=== PATIENT | female | born 1955 | race Caucasian/White ===

== ENCOUNTER → 2024-09-30 | Outpatient (CLI) | payer MEDICARE, SELFPAY | END | disposition home or self-care (01) | LOC: SLDO 15:20 | PROVIDERS: PCP Nurse Practitioner Family; Referring Provider Nurse Practitioner Family; Visit Provider Nurse Practitioner Family | DX: N30.00 Acute cystitis without hematuria (principal) | CPT/HCPCS: 87077; 87086; 87186 ==

== ENCOUNTER → 2024-10-30 | Outpatient (CLI) | payer MEDICARE, SELFPAY ==
[2024-10-30 12:26] LABS: Alanine Aminotransferase 20 U/L (10-49); Albumin, Serum 4.5 gm/dL (3.4-4.8); Alkaline Phosphatase 77 U/L (46-116); Anion Gap 8 (7-16); Aspartate Amino Transferase 25 U/L (0-34); BUN/Creatinine Ratio 22 Ratio (12-20); Bilirubin,Total 0.7 mg/dL (0.3-1.2); Blood Urea Nitrogen 13 mg/dL (9-23); Calcium 9.6 mg/dL (8.3-10.6); Calcium (Corrected) 9.6 mg/dL (8.5-10.1); Cardiac Risk Estimate 2.6 RATIO (3.7-5.6); Chloride 103 mMol/L (98-107); Cholesterol 160 mg/dL (132-200); Creatinine (Component) 0.6 mg/dL (0.6-1.3); Globulin 2.3 gm/dL (2.3-3.5); Glucose 94 mg/dL (74-106); HDL Cholesterol 61 mg/dL (40-60); LDL Cholesterol,Calculated 83 mg/dL (0-130); Osmolality,Calculated 277 (275-295); Potassium 4.1 mMol/L (3.4-5.1); Sodium 139 mMol/L (136-145); Total Protein 6.8 gm/dL (5.7-8.2); Triglycerides 81 mg/dL (30-150); eGFR > 60 See Note
== END | disposition home or self-care (01) ==
LOC: COPL 09:50
PROVIDERS: PCP Family Medicine; Referring Provider Physician Assistant; Visit Provider Physician Assistant
DX: E78.5 Hyperlipidemia, unspecified (principal)
CPT/HCPCS: 36415; 80053; 80061

== ENCOUNTER 2025-01-01 05:16 | Emergency (ER) | payer MEDICARE, SELFPAY ==
[2025-01-01 05:16] VITALS: BMI 26.6
[2025-01-01 05:20] VITALS: BP 134/74; PULSE 79; RESP 16; TEMP 37.1; O2SAT 97
--- NOTE | 2025-01-01 05:32 | EDRME_ITS ---
Rapid Medical Screening Exam [facility] Arrival date/time: 01/01/25 05:16 69F with no significant PMH presents to ED with 1 week of constipation and vague ab discomfort. Patient denies N/V. Chief Complaint: Abdominal Pain Vital signs: Vital Signs Temperature 98.7 F 01/01/25 05:20 Pulse Rate 79 01/01/25 05:20 Respiratory Rate 16 01/01/25 05:20 Blood Pressure 134/74 H 01/01/25 05:20 Pulse Oximetry (%) 97 01/01/25 05:20 Oxygen Delivery Method Room Air 01/01/25 05:20
[2025-01-01 06:13] LABS: Lactate (Lactic Acid) 0.7 mMol/L (0.4-2.0)
[2025-01-01 06:15] VITALS: BP 128/63; PULSE 62; RESP 18; TEMP 36.6; O2SAT 97
[2025-01-01 06:24] LABS: Basophils # (Auto) 0.1 Thou/mm3 (0.0-0.2); Basophils % (Auto) 0 % (0-2.5); Eosinophils # (Auto) 0.1 Thou/mm3 (0.0-0.5); Eosinophils % (Auto) 1 % (0-10); Hematocrit 40.1 % (36.0-46.0); Hemoglobin 13.1 g/dL (12.0-16.0); Immature Granulocytes % (Auto) 0 % (0-0); Immature Granulocytes Auto 0.03 Thou/mm3 (0.00-0.00); Lymphocytes # (Auto) 1.5 Thou/mm3 (1.0-4.8); Lymphocytes % (Auto) 13 % (10-50); Mean Corpuscular HGB Conc 32.7 g/dl (31.0-37.0); Mean Corpuscular Volume 89 fL (80-100); Monocytes # (Auto) 0.5 Thou/mm3 (0.0-0.8); Monocytes % (Auto) 4 % (0-12); Neutrophils # (Auto) 9.8 Thou/mm3 (1.8-7.7); Neutrophils % (Auto) 82 % (37-80); Nucleated Red Blood Cell % 0 /100 WBC (0); Platelet Count 339 Thou/mm3 (140-440); RDW Standard Deviation 48.8 fL (36.4-46.3); Red Blood Count 4.52 Miln/mm3 (4.00-5.20); White Blood Count 11.9 Thou/mm3 (3.6-11.0)
[2025-01-01 06:39] LABS: Alanine Aminotransferase 22 U/L (10-49); Albumin, Serum 4.6 gm/dL (3.4-4.8); Albumin/Globulin Ratio 1.5 (1.2-2.2); Alkaline Phosphatase 96 U/L (46-116); Anion Gap 5 (7-16); Aspartate Amino Transferase 32 U/L (0-34); BUN/Creatinine Ratio 16 Ratio (12-20); Bilirubin,Total 0.5 mg/dL (0.3-1.2); Blood Urea Nitrogen 11 mg/dL (9-23); Calcium 9.8 mg/dL (8.3-10.6); Calcium (Corrected) 9.8 mg/dL (8.5-10.1); Carbon Dioxide 29.9 mMol/L (20.0-31.0); Chloride 107 mMol/L (98-107); Creatinine (Component) 0.7 mg/dL (0.6-1.3); Estimated Creatinine Clearance 76.9 mL/min (>60); Globulin 3.1 gm/dL (2.3-3.5); Glucose 104 mg/dL (74-106); Osmolality,Calculated 282 (275-295); Potassium 4.1 mMol/L (3.4-5.1); Sodium 142 mMol/L (136-145); Total Protein 7.7 gm/dL (5.7-8.2); eGFR > 60 See Note
--- NOTE | 2025-01-01 07:09 | XR_ITS ---
Examination: Abdominal series 3 views including upright PA chest TECHNIQUE: Upright PA chest, AP upright AP supine abdomen 3 views Exam date and time: January 01, 2025 at 0728 hours INDICATIONS: Abdominal pain and constipation beginning 6 days ago. FINDINGS: Normal heart size Lungs are clear. Large amounts of stool throughout the entire colon. No obstruction. No free air Severe osteopenia IMPRESSION: Large amounts of stool throughout the entire colon
--- NOTE | 2025-01-01 07:12 | PD.EDABDPN ---
ED Abdominal Pain RME/HPI General Chief Complaint: Abdominal Pain Stated complaint: NO BM X 6 DAYS Time seen by provider: 01/01/25 12:47 Arrival date/time: 01/01/25 05:16 RME / HPI RME / HPI narrative: 01/01/25 05:16 69F with no significant PMH presents to ED with 1 week of constipation and vague ab discomfort. Patient denies N/V. DR. PARDO MAIN ED EVALUATION: 69 year old female presents to the Emergency Department with complaint of mild abdominal pressure and no BM. States she has been traveling recently and this has happened before when she's traveling due to different eating schedule and drinking less water. Denies pain. Denies fever, chills, sweat. No N/V. Related Data Home Medications ?Medication ?Instructions ?Recorded ?Confirmed calcium 500 mg (as 1 tab PO QDAY 03/18/21 03/18/21 carbonate)-vitamin D3 5 mcg (200 unit) tablet (Calcium 500 + D) folic acid 1 mg tablet 1 mg PO QDAY 03/18/21 03/18/21 vitamin B complex 1 tab PO QDAY 03/18/21 03/18/21 Allergies Allergy/AdvReac Type Severity Reaction Status Date / Time Sulfa (Sulfonamide Allergy Severe Hives Verified 03/18/21 10:37 Antibiotics) Review of Systems Review of Systems Systems Reviewed: All systems reviewed, normal except as documented Narrative Review of Systems: GEN: No fever, no chills, no weight loss EYES: No discharge, no visual changes, no pain HEENT: No ear pain, no congestion, no sore throat PULM: No shortness of breath, no cough, no congestion CV: No chest pain, no dyspnea on exertion, no palpitations GI: No nausea, no vomiting, no diarrhea, + mild abdominal pressure, + constipation : No frequency, no urgency and no dysuria MUSC/SKEL: No joint pain, no back pain SKIN: No rash PSYCH: No hallucinations, no depression HEME/LYMPH: No easy bleeding or bruising tendencies NEURO: No weakness, no headache Past Medical History Social History SMOKING STATUS: Never smoker SUBSTANCE USE: does not use ALCOHOL: Never ED Exam Narrative Physical exam: GENERAL APPEARANCE: alert and oriented x 4, well-developed, well-nourished, no acute distress VITALS: All vitals were reviewed and the pulse ox is 100% on room air, which is normal according to my interpretation. HEENT: Normocephalic, atraumatic; pupils equal, round, reactive to light; EOMI; mucous membranes pink, moist; oropharynx clear NECK: Supple LUNGS: CTABL; no wheezes, no rales, no rhonchi HEART: Regular rate, regular rhythm; normal S1, S2; no murmurs ABDOMEN: non distended; normal BS; soft, no tenderness, no guarding, no rebound; no masses, no organomegaly, no hernia BACK: no CVA tenderness EXTREMITIES: atraumatic; no edema NEUROLOGIC: awake; alert and oriented x4; cranial nerves II-XII grossly intact; no focal sensory or motor deficits PSYCHIATRIC: appropriate mood and affect SKIN: warm, dry, normal color; no rashes Course Course Course Narrative: 1200: Patient was signed out to Dr. Stearns. Past medical, surgical, social and family history reviewed. Vitals and home medications reviewed. Results and treatment plan discussed. They will assume the care of the patient at this time and will follow the patient. Quality Measures none Orders Category Date Time Status CT Screening NOW Care 01/01/25 05:31 Completed Enema Administration ONCE Care 01/01/25 14:08 Completed Enema Administration ONCE Care 01/01/25 14:40 Completed Insert IV NOW Care 01/01/25 05:31 Completed XR abdomen series w chest 1V Stat Exams 01/01/25 07:39 Completed CBC Stat Lab 01/01/25 06:03 Completed CMP [Comprehensive Metabolic Panel] Stat Lab 01/01/25 06:03 Completed Lactate (Lactic Acid) Stat Lab 01/01/25 06:03 Completed Urinalysis, C/S if Indicated Stat Lab 01/01/25 07:18 Completed Magnesium Citrate Liqd [Citrate of Magnesia Liqd] Med 01/01/25 07:57 Discontinued 300 ml PO X1 ONE Vital Signs Vital signs: Vital Signs Temperature 98.7 F 01/01/25 05:20 Pulse Rate 79 01/01/25 05:20 Respiratory Rate 16 01/01/25 05:20 Blood Pressure 134/74 H 01/01/25 05:20 Pulse Oximetry (%) 97 01/01/25 05:20 Oxygen Delivery Method Room Air 01/01/25 05:20 Abdominal Pain MDM MDM Narrative MDM Narrative:: I, Joelle Charles, am scribing for and in the presence of Dr. Pardo. Patient data External records reviewed:: [facility] previous records (Reviewed consultation note by Dr. Ahumada dated 03/18/21.) Clinical information provided by:: patient Social determinants that could affect healthcare access:: none Patient has the following chronic illnesses:: Denies any PMHx, surgeries, daily medications, or known allergies. How is presenting disease/condition affected by chronic disease/condition?: no chronic disease Evaluation data The following diagnostics were reviewed and interpreted by me:: lab results and radiology exam(s) Lab and/or radiology exams considered but not ordered:: none Interpretation Summary: Procedure(s): XR abdomen series w chest 1V Accession Number(s): [id number] cc: Jorge Luis Aguilar MD; Margi Segura PA-C; Alexus Pardo MD~ Examination: Abdominal series 3 views including upright PA chest TECHNIQUE: Upright PA chest, AP upright AP supine abdomen 3 views Exam date and time: January 01, 2025 at 0728 hours INDICATIONS: Abdominal pain and constipation beginning 6 days ago. FINDINGS: Normal heart size Lungs are clear. Large amounts of stool throughout the entire colon. No obstruction. No free air Severe osteopenia IMPRESSION: Large amounts of stool throughout the entire colon Dictated By: Jorge Luis Aguilar MD Medications / Prescriptions Medications or Prescriptions considered but not ordered:: none Medication administrations:: Medication Administration History Discontinued Medications Magnesium Citrate (Magnesium Citrate 300 Ml Btl) 300 ml PO X1 ONE Stop: 01/01/25 07:58 Last Admin: 01/01/25 08:13 Dose: 300 ml Documented By: TM see above Consultations Consultation(s) initiated? (list below): No Consultation #1 (Physician, Specialty, Details): Patient signout to Dr. Stearns. Diagnosis Differential diagnosis abdominal pain: abdominal pain, constipation and small bowel obstruction Most likely diagnosis given after review of the tests above:: No official diagnoses at this time, still pending diagnostic tests. Patient signout to Dr. Stearns. Admission Indicated Admission indicated?: not indicated Explain why admission is indicated or not indicated:: No final disposition plan at this time, still pending diagnostic tests. Patient signout to Dr. Stearns. Admission Request Was there a request for admission?: No Disposition Plan Disposition Plan: other (specify) (Patient signout to Dr. Stearns.) Discharge Plan Plan Patient Disposition: HOME (Self Care) Patient condition on transfer: Stable Prescriptions/Referrals Prescriptions/Med Rec: No Action vitamin B complex Tablet 1 tab PO QDAY folic acid 1 mg Tablet 1 mg PO QDAY calcium carbonate-vitamin D3 [Calcium 500 + D] 500 mg(1,250mg) -200 unit Tablet 1 tab PO QDAY Referrals: Margi Segura PA-C [Primary Care Provider] - In 1 week Problem List Clinical Impression: Abdominal pain Patient/Caregiver Discharge Instructions Education Materials: ED Constipation (Adult) Additional Instructions: Please continue constipation medication at home to include MiraLAX 17 g once a day for the next 2 weeks once you start having diarrhea then you can switch back to every other day. Please follow-up with your primary care physician in the next 3 days for recheck. You need to stay hydrated with Pedialyte or Gatorade as well so that you do not become dehydrated. Return to the emergency department for any worsening symptoms, or any other concerns. Print Language: Indian Stand Alone Forms: Abby Award Info., Patient Portal Info Letter
[2025-01-01 07:34] LABS: Collection Type, Urine Clean Catch; WBC,Urine 0 /hpf (0-5)
--- NOTE | 2025-01-01 07:39 | PC.NURSE ---
Pt denies any pain at this time, up to give urine sample. pt has steady gait. Pt back to room, call montemayor in reach. Pt in agreement w/POC.
[2025-01-01 08:00] LABS: Bilirubin,Urine Negative (Negative); Blood,Urine Negative (Negative); Clarity,Urine Clear (Clear/Hazy); Color,Urine Colorless (Lt Yel-Yel); Culture Indicated,Urine Not Indicated; Glucose, Urine Negative (Negative); Ketones,Urine Negative (Negative); Leukocyte Esterase,Urine Negative (Negative); Nitrite,Urine Negative (Negative); Protein,Urine Negative (Neg - Trace); RBC,Urine 1 /hpf (0-3); Specific Gravity,Urine 1.005 (1.001-1.035); Squamous Epithelial Cell,Urine 1 /hpf (0-5); Urobilinogen,Urine Negative mg/dL (0.0-1.0)
[2025-01-01] MEDS: MAGNESIUM CITRATE 300 ML BTL PO (08:13)
[2025-01-01 08:45] VITALS: BP 155/72; PULSE 64; RESP 18; TEMP 36.4; O2SAT 100
[2025-01-01 12:07] VITALS: BP 146/64; PULSE 63; RESP 16; TEMP 36.9; O2SAT 100
--- NOTE | 2025-01-01 14:11 | PD.EDADDENDU ---
Emergency Room Addendum Addendum Narrative: 1200: Care assumed from Dr. Pardo, the previous shift emergency physician. Past medical, surgical, social and family history reviewed. Vitals and home medications reviewed. I will assume the care of the patient at this time. Please refer to the emergency department record for history and examination from initial visit.? Physical exam by me shows patient under no acute distress at this time. 1400: Enema ordered with fluids and then re-evaluate. 1528: Patient had a bowel movement and now feels much better. Patient remains clinically stable throughout the emergency department visit. Re-assessment at the time of disposition demonstrates that the patient is in no acute distress. We reviewed all the results, analysis, and treatment plans. Patient is amenable to discharge. Strict return precautions were outlined. Patient was discharged in stable condition.
[2025-01-01 15:03] VITALS: BP 116/72; PULSE 82; RESP 16; TEMP 36.5; O2SAT 98
--- NOTE | 2025-01-01 15:28 | PC.NURSE ---
WHEN THIS RN CAME BACK FROM LUNCH, PT STATED SHE HAD MULTIPLE LARGE BOWEL MOVEMENTS.
== END 2025-01-01 15:41 | disposition home or self-care (01) ==
PROVIDERS: Physician Assistant; Emergency Provider Emergency Medicine; PCP Physician Assistant
DX: K59.00 Constipation, unspecified (principal)
CPT/HCPCS: 36415; 74022; 80053; 81001; 83605; 85025; 99283; A9270

== ENCOUNTER → 2025-02-20 | Outpatient (CLI) | payer MEDICARE, SELFPAY ==
--- NOTE | 2025-02-20 15:41 | XR_ITS ---
Examination: Knee, left , 3 views Technique: Knee AP, lateral, oblique 3 views Date and time of exam: February 12, 2025 1551 hours INDICATIONS: Left knee pain beginning one month ago. FINDINGS: Mild to moderate narrowing medial joint space No fracture or dislocation Small knee effusion IMPRESSION: Mild to moderate narrowing medial joint space
== END | disposition home or self-care (01) ==
PROVIDERS: PCP Physician Assistant; Referring Provider Physician Assistant; Visit Provider Physician Assistant
DX: M25.862 Other specified joint disorders, left knee (principal)
CPT/HCPCS: 73562

== ENCOUNTER → 2025-04-27 | Outpatient (CLI) | payer MEDICARE, SELFPAY ==
[2025-04-27 10:33] LABS: Basophils # (Auto) 0.1 Thou/mm3 (0.0-0.2); Basophils % (Auto) 1 % (0-2.5); Eosinophils # (Auto) 0.1 Thou/mm3 (0.0-0.5); Eosinophils % (Auto) 1 % (0-10); Hematocrit 36.6 % (36.0-46.0); Hemoglobin 12.1 g/dL (12.0-16.0); Immature Granulocytes % (Auto) 0 % (0-0); Immature Granulocytes Auto 0.02 Thou/mm3 (0.00-0.00); Lymphocytes # (Auto) 1.7 Thou/mm3 (1.0-4.8); Lymphocytes % (Auto) 23 % (10-50); Mean Corpuscular HGB Conc 33.1 g/dl (31.0-37.0); Mean Corpuscular Hemoglobin 29.3 pg (25.0-35.0); Mean Corpuscular Volume 89 fL (80-100); Monocytes # (Auto) 0.4 Thou/mm3 (0.0-0.8); Monocytes % (Auto) 5 % (0-12); Neutrophils # (Auto) 5.1 Thou/mm3 (1.8-7.7); Neutrophils % (Auto) 70 % (37-80); Nucleated Red Blood Cell % 0 /100 WBC (0); Platelet Count 268 Thou/mm3 (140-440); RDW Standard Deviation 47.3 fL (36.4-46.3); Red Blood Count 4.13 Miln/mm3 (4.00-5.20); White Blood Count 7.2 Thou/mm3 (3.6-11.0)
[2025-04-27 10:50] LABS: Vitamin B12 636 pg/mL (211-911); Vitamin D 25 Hydroxy Total 55.1 ng/mL (7.3-40.2)
[2025-04-27 10:53] LABS: Alanine Aminotransferase 14 U/L (10-49); Albumin, Serum 4.3 gm/dL (3.4-4.8); Albumin/Globulin Ratio 1.9 (1.2-2.2); Alkaline Phosphatase 77 U/L (46-116); Anion Gap 10 (7-16); Aspartate Amino Transferase 26 U/L (0-34); BUN/Creatinine Ratio 20 Ratio (12-20); Bilirubin,Total 0.7 mg/dL (0.3-1.2); Blood Urea Nitrogen 12 mg/dL (9-23); Calcium 8.9 mg/dL (8.3-10.6); Calcium (Corrected) 8.9 mg/dL (8.5-10.1); Carbon Dioxide 27.1 mMol/L (20.0-31.0); Cardiac Risk Estimate 2.3 RATIO (3.7-5.6); Chloride 104 mMol/L (98-107); Cholesterol 145 mg/dL (132-200); Creatinine (Component) 0.6 mg/dL (0.6-1.3); Globulin 2.3 gm/dL (2.3-3.5); Glucose 96 mg/dL (74-106); HDL Cholesterol 62 mg/dL (40-60); LDL Cholesterol,Calculated 69 mg/dL (0-130); Osmolality,Calculated 280 (275-295); Potassium 4.1 mMol/L (3.4-5.1); Sodium 141 mMol/L (136-145); Thyroid Stimulating Hormone 1.27 uIU/mL (0.55-4.78); Total Protein 6.6 gm/dL (5.7-8.2); Triglycerides 71 mg/dL (30-150); eGFR > 60 See Note
[2025-04-27 11:08] LABS: Collection Type, Urine Clean Catch; Squamous Epithelial Cell,Urine 0 /hpf (0-5)
[2025-04-27 11:57] LABS: Bilirubin,Urine Negative (Negative); Blood,Urine Negative (Negative); Clarity,Urine Clear (Clear/Hazy); Color,Urine Colorless (Lt Yel-Yel); Culture Indicated,Urine Not Indicated; Glucose, Urine Negative (Negative); Ketones,Urine Negative (Negative); Leukocyte Esterase,Urine Negative (Negative); Nitrite,Urine Negative (Negative); Protein,Urine Negative (Neg - Trace); RBC,Urine < 1 /hpf (0-3); Specific Gravity,Urine 1.006 (1.001-1.035); Urobilinogen,Urine Negative mg/dL (0.0-1.0); WBC,Urine < 1 /hpf (0-5)
== END | disposition home or self-care (01) ==
LOC: COPL 09:39
PROVIDERS: PCP Family Medicine; Referring Provider Physician Assistant; Visit Provider Physician Assistant
DX: E78.5 Hyperlipidemia, unspecified (principal)
CPT/HCPCS: 36415; 80053; 80061; 81001; 82306; 82607; 84443; 85025

== ENCOUNTER → 2025-04-29 | Outpatient (CLI) | payer MEDICARE, SELFPAY ==
[2025-05-04 06:47] LABS: Fecal Globin Result NOT DETECTED (NOT DETECTED)
== END | disposition home or self-care (01) ==
LOC: SLDO 13:05
PROVIDERS: PCP Family Medicine; Referring Provider Physician Assistant; Visit Provider Physician Assistant
DX: E78.5 Hyperlipidemia, unspecified (principal)
CPT/HCPCS: 82274; G0328

== ENCOUNTER → 2025-09-10 | Outpatient (CLI) | payer MEDICARE, SELFPAY ==
--- NOTE | 2025-09-10 10:45 | XR_ITS ---
Examination: Screening digital mammography, bilateral Computer aided detection 3-D breast Tomosynthesis, bilateral Date and time of exam: 09/10/2025, 10:25 a.m. Comparisons: May 2013 to August 2023 Indications: Screening Technique: Nonmagnified MLO, CC views of the breasts to been obtained, reconstructed from 3-D Tomosynthesis images. R2 computer aided detection program utilized for evaluation of suspicious masses and/or abnormal calcifications. 3-D Tomosynthesis images obtained. Technologist: Findings: There are scattered areas of fibroglandular density. No evidence of abnormal masses or suspicious calcifications. Impression: BI-RADS category 1: Negative findings (within normal) Recommend 1 year follow-up mammogram
== END | disposition home or self-care (01) ==
LOC: CDIM 10:13
PROVIDERS: Referring Provider Physician Assistant; Visit Provider Physician Assistant
DX: Z12.31 Encounter for screening mammogram for malignant neoplasm of breast (principal); R92.313 Mammographic fatty tissue density, bilateral breasts
CPT/HCPCS: 77063; 77067

== ENCOUNTER → 2025-11-16 | Outpatient (CLI) | payer MEDICARE, SELFPAY ==
--- NOTE | 2025-11-16 12:20 | XR_ITS ---
Examination: Bone densitometry Date and time of exam: November 16, 2025, 1303 hours INDICATIONS: Menopause age 45 vitamin D and calcium 10 years, family history mother osteopenia, personal history osteopenia Technique: Forearm and hip total bone mineralization values of an calculated. Peak reference and age match control results have been displayed. Findings: Forearm total bone mineralization is 0.495 gm/cm2. This is 1.3 standard deviations below peak reference. This is 1.0 standard deviations above age-matched controls. Hip total bone mineralization is 0.748 gm/cm2 This is 1.6 standard deviations below peak reference. This is 0.1 standard deviations above age-matched controls Impression: There is osteopenia based on forearm measurements. There is osteopenia based on hip measurements Forearm mineralization is decreased 1.4% compared with November 12, 2023 Hip mineralization is decreased 3.9% compared with November 12, 2023
== END | disposition home or self-care (01) ==
LOC: CDIM 12:17
PROVIDERS: PCP Family Medicine; Referring Provider Physician Assistant; Visit Provider Physician Assistant
DX: M85.89 Other specified disorders of bone density and structure, multiple sites (principal)
CPT/HCPCS: 77080